=== PATIENT | male | born 1960 | race Caucasian/White ===

== ENCOUNTER 2019-11-23 07:38 | Day surgery (SDC) | payer OTHER ==
[~2019-11-23] VITALS: Ht 165.1 cm; Wt 88.5 kg
[2019-11-23] MEDS ORDERED: fentaNYL 0.05 MG/ML VIAL ONE (08:42)
[2019-11-23] MEDS ORDERED: LIDOCAINE 2% 100 MG/5 ML UJET TP ONE (08:42)
[2019-11-23] MEDS ORDERED: fentaNYL 0.05 MG/ML VIAL IVP ONE (08:55)
== END 2019-11-23 09:50 | disposition home or self-care (01) ==
LOC: MDS 07:38 → MMU 07:39 → MDS 09:50
PROVIDERS: ATTEND Internal Medicine Gastroenterology
DX: Z12.11 Encounter for screening for malignant neoplasm of colon (principal); D12.3 Benign neoplasm of transverse colon; K57.30 Diverticulosis of large intestine without perforation or abscess without bleeding; E66.9 Obesity, unspecified; Z86.010 Personal history of colon polyps; Z79.899 Other long term (current) drug therapy; Z68.34 Body mass index [BMI] 34.0-34.9, adult
CPT/HCPCS: 45385; J3010